=== PATIENT | female | born 1995 | race Caucasian/White ===

== ENCOUNTER 2017-01-29 00:34 | Emergency (ER) | payer OTHER ==
[2017-01-29] MEDS ORDERED: VALPROATE SODIUM 500 MG in IV NORMAL SALINE 50ML 50 ML IV STA (00:53)
--- NOTE | 2017-01-29 00:53 | ED.ADGEN ---
Past History Past Medical History: Asthma, Migraines, Other Past Surgical History: Tonsillectomy Alcohol Use: None Drug Use: None Adult General Chief Complaint Chief Complaint ".. I have headache ever since I was a teenager... but this is really bad one.. it came on when I was working out.. I ve been vomiting.. 7 x tonight.. I took two my headache pill Sumatriptan 100mg twice. .. but the head is no better.. My vision is off in my Lt eye too.." HPI HPI Patient is a 21 year old female who presents with above hx and complaints of migraine headache. Pt. reports headache came on while working out. Pt. has hx chronic headache and sees Dr. Holt neurology. Pt. has decreased nasal field loss or Lt lateral visual field which is a new presentation for her migraine exacerbations. Pt. 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 Pt. is having photophobia, visual aura and persistent nausea and some vomiting which is normal for her migraine exacerbations. These symptoms usually however resolve with Sumatriptan. Pt.has No hx of trauma., travel, ill contacts, fevers, chills, or hx of immunosuppression. Grand mother is driving for pt. Previous CT and MRI have been negative on workup for her migraine exacerbations. Review of Systems Review of Systems Constitutional: Denies fever or chills [] Eyes: has change in visual acuity, No redness, or eye pain [] HENT: Denies nasal congestion or sore throat [] Respiratory: Denies cough or shortness of breath [] Cardiovascular: No additional information not addressed in HPI [] GI: Denies abdominal pain, nausea, vomiting, bloody stools or diarrhea [] : Denies dysuria or hematuria [] Musculoskeletal: Denies back pain or joint pain [] Integument: Denies rash or skin lesions [] Neurologic: Migraine headache,. Denies focal weakness or sensory changes [] Endocrine: Denies polyuria or polydipsia [] Family History Family History Non-contributory Current Medications Current Medications Current Medications Medications (Trade) Dose Ordered Sig/Glory Start Time Stop Time Status Last Admin Dose Admin Diphenhydramine HCl (Benadryl) 50 mg STK-MED ONCE 01/29/17 01:32 01/29/17 03:12 DC Fentanyl Citrate (Fentanyl 2ml Vial) 100 mcg STK-MED ONCE 01/29/17 01:33 01/29/17 01:34 DC Fentanyl Citrate (Fentanyl 5ml Vial) 50 mcg 1X ONCE 01/29/17 01:15 01/29/17 03:12 DC 01/29/17 01:45 50 MCG Lactated Ringer's 1,000 ml @ As Directed STK-MED ONCE 01/29/17 01:23 01/29/17 03:12 DC Ondansetron HCl (Zofran) 4 mg STK-MED ONCE 01/29/17 01:23 01/29/17 03:12 DC Sodium Chloride 50 ml @ As Directed STK-MED ONCE 01/29/17 01:32 01/29/17 01:33 DC Valproic Acid (Depacon) 500 mg STK-MED ONCE 01/29/17 01:32 01/29/17 01:33 DC Valproic Acid 500 mg/Sodium Chloride 55 ml @ 0 mls/hr 1X STAT 01/29/17 00:53 01/29/17 03:12 DC 01/29/17 01:45 50 MLS/HR Allergies Allergies Allergies Coded Allergies Type Severity Reaction Last Updated Verified cefaclor Allergy Intermediate hives 05/09/15 Yes Physical Exam Physical Exam Constitutional: Well developed, well nourished, in moderately acute distress, non-toxic appearance. [] HENT: Normocephalic, atraumatic, bilateral external ears normal, oropharynx moist, no oral exudates, nose normal. []No temporal artery tenderness Eyes: PERRLA, EOMI, conjunctiva normal, no discharge. Chronic decreased vision Rt. eye. Field deficits lt eye as per HPI. Neck: Normal range of motion, no tenderness, supple, no stridor. [] Cardiovascular:Heart rate regular rhythm, no murmur [] Lungs & Thorax: Bilateral breath sounds clear to auscultation [] Abdomen: Bowel sounds normal, soft, no tenderness, no masses, no pulsatile masses. [] Skin: Warm, dry, no erythema, no rash. [] Back: No tenderness, no CVA tenderness. [] Extremities: No tenderness, no cyanosis, no clubbing, ROM intact, no edema. [] Neurologic: Alert and oriented X 3, normal motor function, normal sensory function, no focal deficits except visual changes. No drift, DTR +2 patella and brachial. Distal vib. 128 intact. AC > BC, no lateralization with 128 fork. Psychologic: Affect anxious, judgement normal, mood normal. [] Current Patient Data Vital Signs Vital Signs Date Time Temp Pulse Resp B/P (MAP) Pulse Ox O2 Delivery O2 Flow Rate FiO2 01/29/17 03:05 98.9 67 20 107/66 (80) 97 Room Air Lab Results Laboratory Tests Test 01/29/17 01:02 01/29/17 02:10 01/29/17 02:23 White Blood Count 8.3 x10^3/uL (4.0-11.0) Red Blood Count 4.54 x10^6/uL (3.50-5.40) Hemoglobin 14.1 g/dL (12.0-15.5) Hematocrit 41.4 % (36.0-47.0) Mean Corpuscular Volume 91 fL (79-100) Mean Corpuscular Hemoglobin 31 pg (25-35) Mean Corpuscular Hemoglobin Concent 34 g/dL (31-37) Red Cell Distribution Width 13.2 % (11.5-14.5) Platelet Count 271 x10^3/uL (140-400) Neutrophils (%) (Auto) 66 % (31-73) Lymphocytes (%) (Auto) 25 % (24-48) Monocytes (%) (Auto) 7 % (0-9) Eosinophils (%) (Auto) 2 % (0-3) Basophils (%) (Auto) 1 % (0-3) Neutrophils # (Auto) 5.5 x10^3uL (1.8-7.7) Lymphocytes # (Auto) 2.0 x10^3/uL (1.0-4.8) Monocytes # (Auto) 0.6 x10^3/uL (0.0-1.1) Eosinophils # (Auto) 0.1 x10^3/uL (0.0-0.7) Basophils # (Auto) 0.1 x10^3/uL (0.0-0.2) Prothrombin Time 10.4 SEC (9.4-11.4) Prothrombin Time INR 1.0 (0.9-1.1) PTT 25 SEC (23-33) Sodium Level 139 mmol/L (136-145) Potassium Level 3.7 mmol/L (3.5-5.1) Chloride Level 102 mmol/L (98-107) Carbon Dioxide Level 29 mmol/L (21-32) Anion Gap 8 (6-14) Blood Urea Nitrogen 7 mg/dL (7-20) Creatinine 0.9 mg/dL (0.6-1.0) Estimated GFR (Cockcroft-Gault) 77.6 BUN/Creatinine Ratio 8 (6-20) Glucose Level 89 mg/dL (70-99) Calcium Level 9.1 mg/dL (8.5-10.1) Magnesium Level 1.8 mg/dL (1.8-2.4) Total Bilirubin 0.3 mg/dL (0.2-1.0) Aspartate Amino Transferase (AST) 19 U/L (15-37) Alanine Aminotransferase (ALT) 14 U/L (14-59) Alkaline Phosphatase 74 U/L (46-116) C-Reactive Protein 0.5 mg/L (0-3.3) Total Protein 7.6 g/dL (6.4-8.2) Albumin 4.3 g/dL (3.4-5.0) Albumin/Globulin Ratio 1.3 (1.0-1.7) Serum Test, Qualitative Negative (NEG) Urine Collection Type Unknown Urine Color Straw Urine Clarity Clear Urine pH 8.0 Urine Specific [place] 1.015 Urine Protein Neg (NEG-TRACE) Urine Glucose (UA) Neg mg/dL (NEG) Urine Ketones (Stick) 15 mg/dL (NEG) Urine Blood Neg (NEG) Urine Nitrite Neg (NEG) Urine Bilirubin Neg (NEG) Urine Urobilinogen Dipstick 0.2 mg/dL (0.2 mg/dL) Urine Leukocyte Esterase Neg (NEG) Urine RBC Occ /HPF (0-2) Urine WBC Rare /HPF (0-4) Urine Squamous Epithelial Cells Occ /LPF Urine Bacteria Few /HPF (0-FEW) Urine Opiates Screen Neg (NEG) Urine Methadone Screen Neg (NEG) Urine Barbiturates Neg (NEG) Urine Phencyclidine Screen Neg (NEG) Urine Amphetamine/Methamphetamine Neg (NEG) Urine Benzodiazepines Screen Neg (NEG) Urine Cocaine Screen Neg (NEG) Urine Cannabinoids Screen Neg (NEG) Urine Ethyl Alcohol Neg (NEG) POC Urine HCG, Qualitative hcg negative (Negative) EKG EKG [] Radiology/Procedures Radiology/Procedures My Ct- No shift, mass, edema, bleed or fx. Ct- formal no acute findings. [] Course & Med Decision Making Course & Med Decision Making Pertinent Labs and Imaging studies reviewed. (See chart for details) 0200- Pt. reports she is 1,000 time better. Nausea has almost resolved. Visual acuity improved and now has her typical aura in Lt eye that she has with migraines. Discussed Spinal Tap - pt. declines it at this time. Must follow up with your Neurology. Meds as previously directed. Call for earlier apt. if needed. Get follow up with ophthalmology. Call in Am for followup with Dr. Escobedo. 0300 Pt. requesting discharge. Express concerns and encouraged pt. to call neurology and ophthalmology this morning. Pt. and Grandmother exhibit UCAR capacity , aware of possible risks of discharge. [] Final Impression Final Impression 1. Migraine Headache 2. Migraine Variant [] Problems: Dragon Disclaimer Dragon Disclaimer This electronic medical record was generated, in whole or in part, using a voice recognition dictation system. JOE ARAGON MD Jan 29, 2017 00:53
[2017-01-29] MEDS ORDERED: diphenhydrAMINE 50 MG/ML VIAL IV ONE (01:00)
[2017-01-29] MEDS ORDERED: ONDANSETRON PF 4 MG/2 ML VIAL. IV ONE (01:00)
[2017-01-29] MEDS ORDERED: IV RINGERS SOLUTION,LACTATED 1,000 ML IV SCH (01:00)
[2017-01-29] MEDS ORDERED: fentaNYL PF 250 MCG/5 ML VIAL IV ONE (01:15)
[2017-01-29] MEDS ORDERED: IV RINGERS SOLUTION,LACTATED 1,000 ML IV ONE (01:23)
[2017-01-29] MEDS ORDERED: ONDANSETRON PF 4 MG/2 ML VIAL. ONE (01:23)
--- NOTE | 2017-01-29 01:30 | RAD ---
INDICATION: SEVERE HEADACHE, VOMITING, HX MIGRAINES COMPARISON: February 23, 2014 TECHNIQUE: Axial CT images obtained through the head without intravenous contrast. One or more of the following individualized dose reduction techniques were utilized for this examination: 1. Automated exposure control; 2. Adjustment of the mA and/or kV according to patient size; 3. Use of iterative reconstruction technique. FINDINGS: No intracranial hemorrhage. No midline shift. Basal cisterns patent. Ventricles and sulci are unremarkable. No acute osseous abnormality. Orbits and paranasal sinuses unremarkable. IMPRESSION: 1. No acute intracranial hemorrhage. Electronically signed by: Toro Mcdonald MD (01/29/2017 1:26 AM) [facility]
[2017-01-29] MEDS ORDERED: diphenhydrAMINE 50 MG/ML VIAL ONE (01:32)
[2017-01-29] MEDS ORDERED: VALPROATE SODIUM 500 MG/5 ML VIAL IV ONE (01:32)
[2017-01-29] MEDS ORDERED: IV NORMAL SALINE 50ML 50 ML ONE (01:32)
[2017-01-29] MEDS ORDERED: fentaNYL PF 100 MCG/2 ML VIAL ONE (01:33)
[2017-01-29 01:41] LABS: PREG TEST PT QUAL NEGATIVE (NEG)
[2017-01-29 01:44] LABS: ALBUMIN 4.3 g/dL (3.4-5.0); ALBUMIN/GLOBULIN RATIO 1.3 (1.0-1.7); C REACTIVE PROTEIN 0.5 mg/L (0-3.3); CALCIUM 9.1 mg/dL (8.5-10.1); CREATININE 0.9 mg/dL (0.6-1.0); GFR 77.6; MAGNESIUM 1.8 mg/dL (1.8-2.4); POTASSIUM 3.7 mmol/L (3.5-5.1); TOTAL BILIRUBIN 0.3 mg/dL (0.2-1.0); TOTAL PROTEIN 7.6 g/dL (6.4-8.2)
[2017-01-29 01:53] LABS: BASO # 0.1 x10^3/uL (0.0-0.2); BASO % 1 % (0-3); EOS # 0.1 x10^3/uL (0.0-0.7); EOS % 2 % (0-3); HEMATOCRIT 41.4 % (36.0-47.0); HEMOGLOBIN 14.1 g/dL (12.0-15.5); LYMPH % 25 % (24-48); MEAN CORPUSCULAR HEMOGLOBIN 31 pg (25-35); MEAN CORPUSCULAR HGB CONC 34 g/dL (31-37); MEAN CORPUSCULAR VOLUME 91 fL (79-100); MONO # 0.6 x10^3/uL (0.0-1.1); MONO % 7 % (0-9); NEUT # 5.5 x10^3uL (1.8-7.7); NEUT % 66 % (31-73); PLATELET COUNT 271 x10^3/uL (140-400); RED BLOOD COUNT 4.54 x10^6/uL (3.50-5.40); RED CELL DISTRIBUTION WIDTH 13.2 % (11.5-14.5); WHITE BLOOD COUNT 8.3 x10^3/uL (4.0-11.0)
[2017-01-29 02:43] LABS: AMPHETAMINE/METHAMPHETAMINE NEG (NEG); BARBITURATES NEG (NEG); BENZODIAZEPINES NEG (NEG); CANNABINOIDS NEG (NEG); COCAINE NEG (NEG); METHADONE NEG (NEG); OPIATES NEG (NEG); PHENCYCLIDINE NEG (NEG)
[2017-01-29 02:45] LABS: CLARITY,URINE CLEAR; COLOR,URINE STRAW
[2017-01-29 02:46] LABS: BACTERIA,URINE FEW /HPF (0-FEW); BILIRUBIN,URINE NEG (NEG); GLUCOSE,URINE NEG (NEG); NITRITE,URINE NEG (NEG); RBC,URINE OCC /HPF (0-2); SQUAMOUS EPITHELIAL CELL,UR OCC /LPF; UROBILINOGEN,URINE 0.2 mg/dL (0.2 mg/dL); WBC,URINE RARE /HPF (0-4)
[2017-01-29 03:05] VITALS: BP 107/66
== END 2017-01-29 03:05 | disposition home or self-care (01) ==
LOC: ER 00:34
DX: G43.809 Other migraine, not intractable, without status migrainosus (principal); J45.909 Unspecified asthma, uncomplicated; Z88.1 Allergy status to other antibiotic agents
CPT/HCPCS: 36415; 70450; 80053; 80307; 81001; 81025; 83735; 84703; 85025; 85610; 85730; 86140; 96365; 96375; 99285; J1200; J2405; J3010; J3490; J7120; G0479

== ENCOUNTER → 2019-07-24 | Outpatient (CLI) | payer OTHER, BC ==
--- NOTE | 2019-07-24 12:55 | RAD ---
US PELVIS W/TV History: IUD placement, heavy bleeding Comparison: None. Findings: Multiple transabdominal sonographic images of the pelvis are submitted. Pelvic structures are not well visualized on this portion of exam. Transvaginal ultrasound: Multiple transvaginal sonographic images of the pelvis are submitted. There is IUD present in the endometrial cavity closer to the uterine fundus. To the right of the IUD in the endometrial cavity, there is a 0.9 x 0.5 x 0.3 cm somewhat oblong focus of hypoechogenicity not associated with significant internal vascularity on color Doppler imaging. Uterus measured 7.1 x 4.4 x 3.2 cm. Right ovary measured 2.3 x 2.6 x 3.6 cm. Left ovary measured 3.8 x 2.1 x 2.5 cm. There are multiple follicles of the bilateral ovaries, more peripherally located of the left ovary. There is normal color flow and low resistance vascularity of the ovaries bilaterally. No significant free fluid is demonstrated. Impression: 1. There is IUD present in the endometrial cavity closer to the uterine fundus. To the right of the IUD in the endometrial cavity, there is an oblong focus of nonspecific hypoechogenicity without internal vascularity. Confirmation this is not an early intrauterine should be performed with evaluation of beta-hCG if this has not been performed. This could be secondary to focus of blood products. 2. There are multiple follicles of the ovaries bilaterally, more peripherally located of the left ovary, could be associated with polycystic ovarian syndrome in the appropriate clinical setting. Electronically signed by: Adin Livingston MD (07/24/2019 12:52 PM) [id number]
== END | disposition home or self-care (01) ==
LOC: PMG 11:55
PROVIDERS: ATTEND Registered Nurse
DX: Z30.431 Encounter for routine checking of intrauterine contraceptive device (principal); N83.02 Follicular cyst of left ovary; N83.01 Follicular cyst of right ovary
CPT/HCPCS: 76830; 76856

== ENCOUNTER 2021-03-31 17:52 | Emergency (ER) | payer BC, OTHER ==
[~2021-03-31] VITALS: Ht 167.6 cm; Wt 59.0 kg
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
[2021-03-31 19:26] VITALS: BP 125/69
== END 2021-03-31 19:30 | disposition home or self-care (01) ==
LOC: ER 17:52
DX: S06.0X0A Concussion without loss of consciousness, initial encounter (principal); S13.4XXA Sprain of ligaments of cervical spine, initial encounter; J45.909 Unspecified asthma, uncomplicated; G43.909 Migraine, unspecified, not intractable, without status migrainosus; Z88.1 Allergy status to other antibiotic agents; Y08.89XA Assault by other specified means, initial encounter; Y93.89 Activity, other specified; Y92.89 Other specified places as the place of occurrence of the external cause; Y99.8 Other external cause status
CPT/HCPCS: 70450; 72125; 81025; 99284-25